=== PATIENT | female | born 1980 | race Caucasian/White ===

== ENCOUNTER 2024-03-30 11:33 | Inpatient (IN) | payer MEDICAID, SELFPAY ==
[2024-03-30 11:34] VITALS: BMI 20.7
--- NOTE | 2024-03-30 13:09 | PD.EDRME ---
Rapid Medical Screening Exam RME Arrival date/time: 03/30/24 11:33 43-year-old female presents to the emergency department with complaints of epigastric abdominal pain history of pancreatitis. I have greeted and performed a focused initial assessment of this patient. Initial appropriate labs ordered at this time. A comprehensive ED assessment and evaluation of the patient and analysis of all test and completion of medical decision making process will be conducted by additional ED provider. Chief Complaint: Abdominal Pain Time Seen by Provider: 03/30/24 11:59
[2024-03-30 13:10] VITALS: BP 126/83; PULSE 72; RESP 18; TEMP 36.8; O2SAT 98
[2024-03-30 13:37] LABS: Collection Type, Urine Clean Catch
[2024-03-30 13:40] LABS: Basophils # (Auto) 0.1 Thou/mm3 (0.0-0.2); Basophils % (Auto) 0 % (0-2.5); Eosinophils # (Auto) 0.1 Thou/mm3 (0.0-0.5); Eosinophils % (Auto) 0 % (0-10); Hemoglobin 13.9 g/dL (12.0-16.0); Immature Granulocytes % (Auto) 0 % (0-0); Immature Granulocytes Auto 0.06 Thou/mm3 (0.00-0.00); Lymphocytes # (Auto) 1.2 Thou/mm3 (1.0-4.8); Lymphocytes % (Auto) 8 % (10-50); Mean Corpuscular HGB Conc 33.9 g/dl (31.0-37.0); Mean Corpuscular Hemoglobin 30.3 pg (25.0-35.0); Mean Corpuscular Volume 90 fL (80-100); Monocytes # (Auto) 0.7 Thou/mm3 (0.0-0.8); Monocytes % (Auto) 5 % (0-12); Neutrophils # (Auto) 12.2 Thou/mm3 (1.8-7.7); Neutrophils % (Auto) 86 % (37-80); Nucleated Red Blood Cell % 0 /100 WBC (0); Platelet Count 280 Thou/mm3 (140-440); RDW Standard Deviation 41.1 fL (36.4-46.3); Red Blood Count 4.58 Miln/mm3 (4.00-5.20); White Blood Count 14.2 Thou/mm3 (3.6-11.0)
[2024-03-30 13:46] LABS: HCG Qualitative,Urine Negative
[2024-03-30 13:47] LABS: Bilirubin,Urine Negative (Negative); Blood,Urine 2+ (Negative); Clarity,Urine Clear (Clear/Hazy); Color,Urine Colorless (Lt Yel-Yel); Glucose, Urine Negative (Negative); Ketones,Urine Negative (Negative); Leukocyte Esterase,Urine Negative (Negative); Nitrite,Urine Negative (Negative); Protein,Urine Negative (Neg - Trace); RBC,Urine 10 /hpf (0-3); Squamous Epithelial Cell,Urine 1 /hpf (0-5); Urobilinogen,Urine Negative mg/dL (0.0-1.0); WBC,Urine 2 /hpf (0-5)
[2024-03-30 14:00] LABS: Alanine Aminotransferase 12 U/L (10-49); Albumin, Serum 5.4 gm/dL (3.5-5.0); Alkaline Phosphatase 65 U/L (46-116); Anion Gap 6 (7-16); Aspartate Amino Transferase 20 U/L (0-34); BUN/Creatinine Ratio 11 Ratio (12-20); Bilirubin,Total 0.3 mg/dL (0.3-1.2); Blood Urea Nitrogen 9 mg/dL (9-23); Calcium 9.9 mg/dL (8.3-10.6); Calcium (Corrected) 9.9 mg/dL (8.5-10.1); Carbon Dioxide 27.7 mMol/L (20.0-31.0); Chloride 103 mMol/L (98-107); Creatinine (Component) 0.8 mg/dL (0.6-1.3); Estimated Creatinine Clearance 76.7 mL/min (>60); Globulin 2.7 gm/dL (2.3-3.5); Glucose 113 mg/dL (74-106); Lipase 444 U/L (12-53); Osmolality,Calculated 273 (275-295); Potassium 4.4 mMol/L (3.4-5.1); Sodium 137 mMol/L (136-145); Total Protein 8.1 gm/dL (5.7-8.2); eGFR > 60 See Note
[2024-03-30] MEDS: MG HYD/AL HYD/SIME (Maalox Reg) SUSP 30 ML UDC PO (14:38)
[2024-03-30] MEDS: LIDOCAINE VISCOUS 2% 15 ML UDC PO (14:38)
--- NOTE | 2024-03-30 17:42 | XR_ITS ---
Examination: CT abdomen with intravenous contrast CT pelvis with intravenous contrast 2-D coronal reconstructions 2-D sagittal reconstructions Date and time of exam:March 30, 20242014 hours INDICATIONS: Abdominal pain several months, post biliary surgery COMPARISON: December 05, 2022. CTDI: vol (mGy) 5.39 DLP: (mGycm) 262 Technique: Multiple axial sections of the abdomen and pelvis have been obtained. 64 slice high-resolution scanner used. 3 mm axial sections have been obtained, post intravenous injection of Isovue 370 2-D sagittal, coronal reconstructions obtained. Low dose protocols were performed. One or more of the following dose reduction techniques were used; automated exposure control, adjustment of the mA and/or KV according to patient size, use of iterative reconstruction technique. Findings: No focal liver or splenic lesions Gallbladder not visualized, no extrahepatic significant biliary tract dilatation Acute pancreatitis, diffuse edema surrounding the pancreas no pseudocyst No hydronephrosis Aorta normal size No bowel obstruction Normal appendix No diverticulitis Retroverted uterus with mildly enlarged fundus Contracted urinary bladder Intact osseous structures IMPRESSION: Acute pancreatitis, no pseudocyst
--- NOTE | 2024-03-30 17:44 | EDNOTE_ITS ---
ED Abdominal Pain RME/HPI General Chief Complaint: Abdominal Pain Stated complaint: Abdominal pain after biliary surgery Time seen by provider: 03/30/24 11:59 Arrival date/time: 03/30/24 11:33 RME / HPI RME / HPI narrative: 43-year-old female patient came in for evaluation regarding upper abdominal pain. Onset of symptoms since yesterday as sudden onset of upper abdominal pain, described as dull ache severity 8 out of 10, associated nausea. And generalized body weakness and patient told me that she is not feeling well. She has been struggling with post gallbladder surgery complication according to her she is having epigastric pain that comes and goes but not like today. Patient was drinking alcohol 3 days ago. Denies any other complaints Related Data Home Medications ?Medication ?Instructions ?Recorded ?Confirmed ibuprofen 200 mg tablet 200 mg PO Q6H PRN 12/20/22 12/20/22 Previous Rx's ?Medication ?Instructions ?Recorded famotidine 20 mg tablet 20 mg PO QDAY #30 tabs 07/16/23 sucralfate 100 mg/mL oral 5 ml PO QID #400 mL 07/16/23 suspension (Carafate) Allergies Allergy/AdvReac Type Severity Reaction Status Date / Time No Known Allergies Allergy Verified 12/20/22 14:58 Review of Systems Review of Systems Narrative Review of Systems: Review of system reviewed and within normal limits except mentioned in HPI ED Exam Narrative Physical exam: VITAL SIGNS: Reviewed. GENERAL APPEARANCE: Alert and interactive, follows commands, no acute distress, HEAD AND FACE: Non-traumatic. ENT: PERRL, pink conjunctivitis, eyelid no trauma, Mucous membrane moist. NECK: Supple, nontender, no nuchal rigidity. CHEST: No tenderness, no crepitus, no paradoxical movement, no retractions. LUNGS: Clear, well ventilated, symmetric, no rales, no wheezing, no ronchi, no stridor, good breath sounds bilaterally. HEART: Regular rate, regular rhythm, no murmur, no gallops. ABDOMEN: Soft, positive bowel sounds, nondistended, no guarding, epigastric, left upper quadrant tenderness, no rebound, no masses, RECTAL: Deferred. GENITAL: Deferred. NEUROLOGICAL: Gross motor function intact sensory function intact, Appropriate for age. MUSCULOSKELETAL: low back nontender, full range of motion. EXTREMITIES: Nontender, full range of motion. SKIN: Color pink, dry, no rash, no lacerations, no abrasions, no contusions. LYMPHATICS: Deferred. Course Quality Measures none Orders Category Date Time Status COVID-19 Screening Questionnaire NOW Care 03/30/24 21:42 Active COVID-19 Screening Questionnaire NOW Care 03/30/24 21:[address] Screening NOW Care 03/30/24 17:42 Active Decision to Admit X1 Care 03/30/24 21:42 Active Decision to Admit X1 Care 03/30/24 21:[address] abdomen pelvis w con Stat Exams 03/30/24 17:42 Completed CBC Stat Lab 03/30/24 13:24 Completed Comprehensive Metabolic Panel Stat Lab 03/30/24 13:24 Completed HCG Qualitative,Urine Stat Lab 03/30/24 13:24 Completed Lipase Stat Lab 03/30/24 13:24 Completed Lipid Panel Stat Lab 03/30/24 13:24 Completed Urinalysis Stat Lab 03/30/24 13:24 Completed Ketorolac Inj [Toradol Inj] Med 03/30/24 20:02 Discontinued 30 mg IVP X1 ONE Lidocaine 2% Viscous [Xylocaine 2% Viscous] Med 03/30/24 13:10 Discontinued 15 ml PO X1 ONE Morphine Inj Med 03/30/24 17:42 Discontinued 4 mg IVP X1 ONE Ondansetron Inj [Zofran Inj] Med 03/30/24 17:42 Discontinued 4 mg IV X1 ONE Sodium Chloride 0.9% 1000 ml [Ns] 1,000 ml Med 03/30/24 17:43 Discontinued IV 999 mls/hr mg Hyd/Al Hyd/Marry Susp [Maalox Susp] Med 03/30/24 13:10 Discontinued 30 ml PO X1 ONE Vital Signs Vital signs: Vital Signs Temperature 98.3 F 03/30/24 13:10 Pulse Rate 72 03/30/24 13:10 Respiratory Rate 18 03/30/24 13:10 Blood Pressure 126/83 03/30/24 13:10 Pulse Oximetry (%) 98 03/30/24 13:10 Oxygen Delivery Method Room Air 03/30/24 13:10 Abdominal Pain MDM MDM Narrative MDM Narrative:: 43-year-old female patient came in for evaluation regarding upper abdominal pain. Onset of symptoms since yesterday as sudden onset of upper abdominal pain, described as dull ache severity 8 out of 10, associated nausea. And generalized body weakness and patient told me that she is not feeling well. She has been struggling with post gallbladder surgery complication according to her she is having epigastric pain that comes and goes but not like today. Patient was drinking alcohol 3 days ago. Denies any other complaints Patient's lipase was noted to be 444, the rest of the labs unremarkable including total lipid. CT scan of the abdomen showed acute pancreatitis no pseudocyst seen. Results discussed with the patient. Patient is to be admitted for acute pancreatitis. Spoke with hospitalist, who admitted the patient. Patient data External records reviewed:: None Clinical information provided by:: patient Social determinants that could affect healthcare access:: none Patient has the following chronic illnesses:: None How is presenting disease/condition affected by chronic disease/condition?: no chronic disease Evaluation data The following diagnostics were reviewed and interpreted by me:: lab results and radiology exam(s) Lab and/or radiology exams considered but not ordered:: None Interpretation Summary: See results in MDM Medications / Prescriptions Medications or Prescriptions considered but not ordered:: None Medication administrations:: Medication Administration History Discontinued Medications Al Hydrox/Mg Hydrox/Simethicone (Mg Hyd/Al Hyd/Marry (Maalox Reg) Susp 30 Ml Udc) 30 ml PO X1 ONE Stop: 03/30/24 13:11 Last Admin: 03/30/24 14:38 Dose: 30 ml Documented By: Sodium Chloride (Ns) 1,000 mls @ 999 mls/hr IV .Q1H1M ONE Stop: 03/30/24 18:43 Last Infusion: 03/30/24 21:17 Dose: Infused Documented By: Admin: 03/30/24 20:07 Dose: 999 mls/hr Documented By: KENDALL Ketorolac Tromethamine (Ketorolac Inj 30 Mg/Ml Vial) 30 mg IVP X1 ONE Stop: 03/30/24 20:03 Last Admin: 03/30/24 20:07 Dose: 30 mg Documented By: KENDALL Lidocaine HCl (Lidocaine Viscous 2% 15 Ml Udc) 15 ml PO X1 ONE Stop: 03/30/24 13:11 Last Admin: 03/30/24 14:38 Dose: 15 ml Documented By: Morphine Sulfate (Morphine Sulf Inj 10 Mg/Ml Vial) 4 mg IVP X1 ONE Stop: 03/30/24 17:43 Last Admin: 03/30/24 20:03 Dose: Not Given Documented By: KENDALL Non-Admin Reason: Patient Refused Ondansetron HCl (Ondansetron Inj 2 Mg/Ml Inj 2 Ml) 4 mg IV X1 ONE; Protocol Stop: 03/30/24 17:43 Last Admin: 03/30/24 20:07 Dose: 4 mg Documented By: KENDALL Maalox, IV fluids for hydration Toradol IV morphine IV Zofran Consultations Consultation(s) initiated? (list below): No Diagnosis Differential diagnosis abdominal pain: abdominal pain, pancreatitis and small bowel obstruction Most likely diagnosis given after review of the tests above:: Acute pancreatitis Admission Indicated Admission indicated?: indicated Explain why admission is indicated or not indicated:: For further management Admission Request Was there a request for admission?: Yes Admission Attestation Admission request attestation: Discussed case with [Dr. Capone] from Hospitalist service regarding admission. Discussed patients ED course, exam findings, labs, and radiology results. The Hospitalist [agrees] to accept the patient for admission. Disposition Plan Disposition Plan: Admit Discharge Plan Plan Patient Disposition: Admit Acute Care w/in Hospital Prescriptions/Referrals Prescriptions/Med Rec: No Action ibuprofen 200 mg tablet 200 mg PO Q6H PRN sucralfate [Carafate] 100 mg/mL suspension 5 ml PO QID Qty: 400 0RF Rx Instructions: swish in mouth and swallow; use after food/drink famotidine 20 mg tablet 20 mg PO QDAY Qty: 30 0RF Referrals: Lazaro Bradford MD [Primary Care Provider] - In 1 week Problem List Clinical Impression: Acute pancreatitis Patient/Caregiver Discharge Instructions Discharge Activity: activity as tolerated Print Language: Amharic Stand Alone Forms: [employer] Award Info., Patient Portal Info Letter
[2024-03-30 18:43] LABS: Cardiac Risk Estimate 3.3 RATIO (3.7-5.6); Cholesterol 180 mg/dL (132-200); HDL Cholesterol 54 mg/dL (40-60); LDL Cholesterol,Calculated 78 mg/dL (0-130); Triglycerides 242 mg/dL (30-150)
[2024-03-30 19:16] VITALS: BP 146/78; PULSE 90; RESP 16; TEMP 36.9; O2SAT 98
[2024-03-30] MEDS: SODIUM CHLORIDE 0.9% 1000 ML 1,000 ML 999 ML IV (20:07)
[2024-03-30] MEDS: KETOROLAC INJ 30 MG/ML VIAL IVP (20:07)
[2024-03-30] MEDS: ONDANSETRON INJ 2 MG/ML INJ 2 ML 4 MG IV (20:07)
[2024-03-30 21:40] VITALS: BP 106/70; PULSE 70; RESP 17; TEMP 36.6; O2SAT 98
[2024-03-30 22:26] VITALS: BP 147/85; PULSE 78; RESP 18; TEMP 36.6; O2SAT 99
--- NOTE | 2024-03-30 23:17 | XR_ITS ---
Examination: PA lateral chest 2 views Technique upright PA lateral chest 2 views Standing): March 30, 2024 at 11:20 PM INDICATIONS: Sepsis pain today. FINDINGS: Normal heart size No pneumonia or pulmonary edema The osseous structures are intact Multiple minute granulomas throughout the lungs noted on the prior study IMPRESSION: No pneumonia or pulmonary edema
--- NOTE | 2024-03-30 23:19 | PD.RESHP ---
Documentation for date of: 03/30/24 HPI History of Present Illness Chief complaint: Abdominal pain for 1 day before admission History of present illness: HPI: A 43-year-old female patient with past medical history of recurrent pancreatitis, vertigo, presented to the ED due to acute abdominal pain that started 1 day before admission. Patient reported that she has been having recurrent episodes of abdominal pain since her cholecystectomy that was done few months ago as a part of treatment for her recurrent pancreatitis. However, yesterday patient started to experience more severe pain than usual. The pain started at the epigastric area and radiated to the back. After that the pain became generalized and improved when the patient leans forward. Patient reported that she has nausea however she has not vomited. Patient reported that since her cholecystectomy the patient persistently nauseous and her bowel habits alternate between constipation and diarrhea. She reported that 1 day before her pain started she drank 2 glasses of wine and ate steak. She reported that she had some episodes of pancreatitis even without drinking alcohol. Patient reported that she has also some episodes of lower GI bleed and she was scheduled for colonoscopy for the next week. Since discharge from the hospital in December 2023 patient has has just saw a director of diagnostic imaging last week. At that time there was concern that the patient might have autoimmune pancreatitis as the patient has her episodes of pancreatitis even without drinking alcohol however the patient does not recall she was worked up for that by her GI specialist. In review of other system patient reported that she has urinary frequency however she denied any dysuria, or change in color of urine and denied any fever or chills. Home medications: Omeprazole 40 mg, Linzess, Flonase ED course: In the ED patient vital signs within normal limits except mild elevation of blood pressure 147/85,Her labs showed WBCs of 14.2, hemoglobin stable at 13.9, hematocrit of 41, platelets within normal limits, CMP within normal limits, lipid profile showed triglyceride of 242, lipase 444, urine analysis was only positive for [address] abdomen and pelvis showed radiological picture of acute pancreatitis. PMH: As above PSX: Cholecystectomy, tubal ligation PFX: No similar condition among family members Social hx: Alcohol: Socially Tobacco: Remote history of smoking stopped 4 months ago, at this time smokes vape that contain nicotine Illicit drugs: Daily marijuana Allergies: No known allergies Review of Systems Review of Systems Systems Reviewed: All systems reviewed, normal except as documented Exam Vital Signs Temp Pulse Resp BP Pulse Ox O2 Del Method 97.8 F 78 18 147/85 H 99 Room Air 03/30/24 22:26 03/30/24 22:26 03/30/24 22:26 03/30/24 22:26 03/30/24 22:26 03/30/24 22:26 Narrative Exam GEN: AOx3, able to speak full sentences HEENT: NC/AC, PERRLA, oral mucosa moist, neck supple CVS: RRR, S1-S2 present, no murmurs appreciated RESP: CTAB GI: soft,non distended, generalized abdominal tenderness (mild), NBS MSK: able to move all 4 limbs, no lower extremity edema SKIN: warm and dry SPRING FORMER HAND: CN II-XII and Sensation grossly intact. Results: Labs 03/30/24 13:24 03/30/24 13:24 Labs: Short CBC 03/30/24 Range/Units 13:24 WBC 14.2 H (3.6-11.0) Thou/mm3 Hgb 13.9 (12.0-16.0) g/dL Hct 41.0 (36.0-46.0) % Plt Count 280 (140-440) Thou/mm3 BMP 03/30/24 13:24 Sodium 137 Potassium 4.4 Chloride 103 Carbon Dioxide 27.7 BUN 9 Creatinine 0.8 Glucose 113 H Calcium 9.9 Liver Function 03/30/24 Range/Units 13:24 Total Bilirubin 0.3 (0.3-1.2) mg/dL AST 20 (0-34) U/L ALT 12 (10-49) U/L Alkaline Phosphatase 65 (46-116) U/L Albumin 5.4 H (3.5-5.0) gm/dL Urine 03/30/24 Range/Units 13:24 Urine Color Colorless A (Lt Yel-Yel) Urine Clarity Clear (Clear/Hazy) Urine pH 7.0 (5.0-7.0) Ur Specific [place] 1.010 (1.001-1.035) Urine Protein Negative (Neg - Trace) Urine Glucose (UA) Negative (Negative) Quality Measures Quality Measures none Medications Home Medications and Allergies Home Medications ?Medication ?Instructions ?Recorded ?Confirmed ?Type chlorpheniramine 2 1 tab PO QDAY 03/30/24 03/30/24 History mg-phenylephrine 5 mg-acetaminophen 325 mg tablet (Flonase Headache-Allergy Relief) linaclotide 72 mcg capsule 72 mcg PO QDAY 03/30/24 03/30/24 History (Linzess) omeprazole 40 mg capsule,delayed 40 mg PO BID 03/30/24 03/30/24 History release Allergies Allergy/AdvReac Type Severity Reaction Status Date / Time No Known Allergies Allergy Verified 12/20/22 14:58 Visit Medications Acetaminophen (Acetaminophen 325 Mg Tablet) 650 mg PO Q6H PRN PRN Reason: PAIN SCALE 1-3 (mild Stop: 04/29/24 23:11 Hydrocodone Bitart/Acetaminophen (Hydrocodone/Apap 10/325 Tab) 1 tab PO Q4H PRN PRN Reason: PAIN SCALE 4-6 (Moderate Stop: 04/04/24 23:11 Heparin Sodium (Porcine) (Heparin Sod Inj 5000 Unit/Ml Vial) 5,000 unit SC Q8HR ANN Stop: 04/14/24 05:59 Sodium Chloride (Ns) 1,000 mls @ 150 mls/hr IV .Q6H40M ANN Stop: 04/29/24 23:14 Morphine Sulfate (Morphine Sulf Inj 10 Mg/Ml Vial) 2 mg IVP Q3H PRN PRN Reason: PAIN SCALE 7-10 (Severe Stop: 04/04/24 23:11 Ondansetron HCl (Ondansetron Inj 2 Mg/Ml Inj 2 Ml) 4 mg IV Q6H PRN; Protocol PRN Reason: NAUSEA OR VOMITING Stop: 04/29/24 23:11 Pantoprazole Sodium (Pantoprazole Inj 40 Mg Vial) 40 mg IVP Q12HR ANN Stop: 04/30/24 08:59 Sennosides (Senna Tablet) 1 tab PO QDAY PRN; Protocol PRN Reason: constipation Stop: 04/29/24 23:11 Discontinued Medications Al Hydrox/Mg Hydrox/Simethicone (Mg Hyd/Al Hyd/Marry (Maalox Reg) Susp 30 Ml Udc) 30 ml PO X1 ONE Stop: 03/30/24 13:11 Last Admin: 03/30/24 14:38 Dose: 30 ml Sodium Chloride (Ns) 1,000 mls @ 999 mls/hr IV .Q1H1M ONE Stop: 03/30/24 18:43 Last Infusion: 03/30/24 21:17 Dose: Infused Ketorolac Tromethamine (Ketorolac Inj 30 Mg/Ml Vial) 30 mg IVP X1 ONE Stop: 03/30/24 20:03 Last Admin: 03/30/24 20:07 Dose: 30 mg Lidocaine HCl (Lidocaine Viscous 2% 15 Ml Udc) 15 ml PO X1 ONE Stop: 03/30/24 13:11 Last Admin: 03/30/24 14:38 Dose: 15 ml Morphine Sulfate (Morphine Sulf Inj 10 Mg/Ml Vial) 4 mg IVP X1 ONE Stop: 03/30/24 17:43 Last Admin: 03/30/24 20:03 Dose: Not Given Ondansetron HCl (Ondansetron Inj 2 Mg/Ml Inj 2 Ml) 4 mg IV X1 ONE; Protocol Stop: 03/30/24 17:43 Last Admin: 03/30/24 20:07 Dose: 4 mg Assessment & Plan Plan Summary:A 43-year-old female patient with past medical history of recurrent pancreatitis, vertigo, presented to the ED due to acute abdominal pain that started 1 day before admission. Patient reported that she has been having recurrent episodes of abdominal pain since her cholecystectomy that was done few months ago as a part of treatment for her recurrent pancreatitis. Patient was admitted for acute pancreatitis Assessment and plan #Recurrent acute pancreatitis possible alcoholic versus type I or type II AIP #History of GERD #History of constipation/diarrhea/lower GI bleed Patient has history of recurrent pancreatitis Patient has history of recurrent acute pancreatitis, underwent cholecystectomy 4 months ago after her last episode of acute pancreatitis here in [facility]. 1 day before the pain started patient drank 2 glasses of wine. WBCs of 14.2, hemoglobin stable at 13.9, hematocrit of 41, platelets within normal limits, CMP within normal limits, calcium within normal limits, lipid profile showed triglyceride of 242, lipase 444, urine analysis was only positive for [address] abdomen and pelvis showed radiological picture of acute pancreatitis. Plan ? Admit patient to MedSurg ? Keep the patient n.p.o. until patient hungry, then can a diet ? Start the patient on pantoprazole 40 mg IV twice daily ? Start the patient on NS 150 mL/h ? Strict in and out ? Pain management as per protocol ? Fecal occult blood test was ordered, follow-up on the results ? Consider consulting GI specialist Dr. Bui ? Monitor for any acute pancreatitis complication #History of vertigo Plan ? No symptoms at this time, will keep monitoring #History of smoking Plan ? Smoking cessation counseling was conducted ? Patient started to have withdrawal symptoms consider nicotine patch. Hospital Maintenance: FEN: N.p.o. DVT ppx: Heparin subcu GI ppx: Protonix twice daily IV lines: PIV [place]: None Code status: Full code Dispo: MedSurg - Patient's plan and care discussed with my attending, Dr. Alina Archibald MD Internal Medicine PGY-2 Attending Provider Attestation/Addendum I have discussed and was present for the essential components of the history, physical examination, diagnosis, and treatment plan with the resident. I agree with the patient's care as documented by the resident and amended herein by me. Amadou Fuller DO. Although this document has been carefully reviewed, there may still be some phonetic and other typographical errors. These errors are purely grammatical due to imperfections in the software program and should not be construed in any way to compromise the substance of the patient's medical care during this visit.
[2024-03-31] VITALS (9 sets, daily range): BP systolic 112–159; BP diastolic 63–89; PULSE 53–86; RESP 16–99; TEMP 36.6; O2SAT 97–99; BMI 20.5
[2024-03-31] MEDS: SODIUM CHLORIDE 0.9% 1000 ML 1,000 ML 150 ML IV ×3 (00:31→19:39)
[2024-03-31] MEDS: HYDROcodone/APAP 10/325 TAB PO ×2 (00:31→05:35)
[2024-03-31 05:48] LABS: Basophils # (Auto) 0.1 Thou/mm3 (0.0-0.2); Basophils % (Auto) 1 % (0-2.5); Eosinophils # (Auto) 0.2 Thou/mm3 (0.0-0.5); Eosinophils % (Auto) 2 % (0-10); Hematocrit 34.1 % (36.0-46.0); Hemoglobin 11.5 g/dL (12.0-16.0); Immature Granulocytes % (Auto) 0 % (0-0); Immature Granulocytes Auto 0.02 Thou/mm3 (0.00-0.00); Lymphocytes # (Auto) 2.1 Thou/mm3 (1.0-4.8); Lymphocytes % (Auto) 27 % (10-50); Mean Corpuscular HGB Conc 33.7 g/dl (31.0-37.0); Mean Corpuscular Hemoglobin 30.6 pg (25.0-35.0); Mean Corpuscular Volume 91 fL (80-100); Monocytes # (Auto) 0.7 Thou/mm3 (0.0-0.8); Monocytes % (Auto) 9 % (0-12); Neutrophils # (Auto) 4.7 Thou/mm3 (1.8-7.7); Neutrophils % (Auto) 61 % (37-80); Nucleated Red Blood Cell % 0 /100 WBC (0); Platelet Count 220 Thou/mm3 (140-440); RDW Standard Deviation 40.9 fL (36.4-46.3); Red Blood Count 3.76 Miln/mm3 (4.00-5.20); White Blood Count 7.7 Thou/mm3 (3.6-11.0)
[2024-03-31 05:53] LABS: Misc Send Out* See Sep Rpt
[2024-03-31 06:08] LABS: Glucose Estimated Average 94 mg/dL (80-131); Hemoglobin A1C 4.9 % Hgb (4.8-6.0)
[2024-03-31 06:13] LABS: Partial Thromboplastin Time 25.2 Seconds (22.0-36.0); Prothrombin Time 11.3 Seconds (9.0-12.2)
[2024-03-31 06:35] LABS: Alanine Aminotransferase 20 U/L (10-49); Albumin, Serum 4.3 gm/dL (3.5-5.0); Albumin/Globulin Ratio 2.2 (1.2-2.2); Alkaline Phosphatase 50 U/L (46-116); Anion Gap 7 (7-16); Aspartate Amino Transferase 32 U/L (0-34); BUN/Creatinine Ratio 12 Ratio (12-20); Bilirubin,Total 0.4 mg/dL (0.3-1.2); Blood Urea Nitrogen 7 mg/dL (9-23); Calcium 8.8 mg/dL (8.3-10.6); Calcium (Corrected) 8.8 mg/dL (8.5-10.1); Carbon Dioxide 25.2 mMol/L (20.0-31.0); Chloride 109 mMol/L (98-107); Creatinine (Component) 0.6 mg/dL (0.6-1.3); Estimated Creatinine Clearance 101.2 mL/min (>60); Glucose 90 mg/dL (74-106); Osmolality,Calculated 279 (275-295); Phosphorous 2.5 mg/dL (2.4-5.1); Sodium 141 mMol/L (136-145); Thyroid Stimulating Hormone 1.14 uIU/mL (0.55-4.78); Total Protein 6.3 gm/dL (5.7-8.2); eGFR > 60 See Note
[2024-03-31] MEDS: ONDANSETRON INJ 2 MG/ML INJ 2 ML 4 MG IV (08:02)
[2024-03-31] MEDS: PANTOPRAZOLE INJ 40 MG VIAL IVP ×2 (08:03→20:24)
--- NOTE | 2024-03-31 08:11 | ESPR_ITS ---
Documentation for date of: 03/31/24 Subjective Subjective Interval history: No acute overnight events. Pain is improved although she still feels nauseous. Complaining of headaches for which we restarted home SUMATRIPTAN. Denies worsening symptoms. Denies fever, chills, headaches, chest pain, sob, cough, other GI or urinary symptoms. Exam Vital Signs Temp Pulse Resp BP Pulse Ox O2 Del Method 97.8 F 78 18 112/71 98 Room Air 03/31/24 04:00 03/31/24 04:06 03/31/24 04:06 03/31/24 04:00 03/31/24 04:00 03/31/24 04:00 Narrative Exam GENERAL * Normal appearing adult female, in mild distress secondary to pain. HEENT * NCAT.?JELANI. Oral mucosa is moist. Patent Nares NECK * Supple, nontender, no thyromegaly, no meningismus, no JVD, no step offs CHEST * RRR, no m/g/r * CTAB, no w/r/r. Symmetrical chest rise. No intercostal subcostal retraction * Atraumatic, nontender, no crepitus, symmetrical expansion. ABDOMEN * Limited exam due to pain. * Soft, flat, on visual inspection. * Bowel sounds presents EXTREMITIES * Nontender, no cyanosis, no edema * No edema/cyanosis.? SKIN * Warm and dry, no jaundice/rashes. NEUROMUSCULAR * No lumbar or midline, no CVA, no paraspinal muscle spasm or tenderness. * Moves all 4 extremities well, with full ROM and good CSM. * WHITEHEAD x4, CN II-XII grossly intact. * No focal neurologic deficits. PSYCHIATRY * Normal mood and affect, cooperative, no SI or HI or hallucinations. Objective Labs 04/02/24 04:48 04/02/24 04:48 Labs: Laboratory Results - last 24 hr 03/30/24 03/31/24 13:24 05:28 WBC 14.2 H 7.7 D RBC 4.58 3.76 L Hgb 13.9 11.5 L D Hct 41.0 34.1 L MCV 90 91 MCH 30.3 30.6 MCHC 33.9 33.7 RDW Std Deviation 41.1 40.9 Plt Count 280 220 D Neut % (Auto) 86 H 61 Lymph % (Auto) 8 L 27 [place] % (Auto) 5 9 Eos % (Auto) 0 2 Baso % (Auto) 0 1 Neut # (Auto) 12.2 H 4.7 Lymph # (Auto) 1.2 2.1 [place] # (Auto) 0.7 0.7 Eos # (Auto) 0.1 0.2 Baso # (Auto) 0.1 0.1 Immature Gran # (Auto) 0.06 H 0.02 H Absolute Nucleated RBC 0.00 0.00 Immature Gran % 0 0 Nucleated RBC % 0 0 PT 11.3 INR 1.0 APTT 25.2 Sodium 137 141 Potassium 4.4 4.0 Chloride 103 109 H Carbon Dioxide 27.7 25.2 Anion Gap 6 L 7 BUN 9 7 L Creatinine 0.8 0.6 Estim Creat Clear Calc 76.7 101.2 eGFR > 60 > 60 BUN/Creatinine Ratio 11 L 12 Glucose [address] Glu mg/dL 94 Hemoglobin A1c 4.9 Calculated Osmolality 273 L 279 Calcium 9.9 8.8 Corrected Calcium 9.9 8.8 Phosphorus 2.5 Magnesium 2.0 Total Bilirubin 0.3 0.4 AST 20 32 ALT 12 20 Alkaline Phosphatase 65 50 D Total Protein 8.1 6.3 Albumin 5.4 H 4.3 D Globulin 2.7 2.0 L Albumin/Globulin Ratio 2.0 2.2 Triglycerides 242 H Cholesterol 180 LDL Cholesterol, Calc 78 HDL Cholesterol 54 Cholesterol/HDL Ratio 3.3 L Lipase 444 H TSH 1.14 Ur Collection Type Clean Catch Urine Color Colorless A Urine Clarity Clear Urine pH 7.0 Ur Specific [place] 1.010 Urine Protein Negative Urine Glucose (UA) Negative Urine Ketones Negative Urine Blood 2+ A Urine Nitrite Negative Urine Bilirubin Negative Urine Urobilinogen (Auto) Negative Ur Leukocyte Esterase Negative Urine RBC 10 H Urine WBC 2 Ur Squamous Epith Cells 1 Urine Bacteria None Urine HCG, Qual Negative Quality Measures Quality Measures none Assessment & Plan Assessment Current Active Medications: Generic Name Dose Route Start Last Admin Trade Name Freq PRN Reason Stop Dose Admin Acetaminophen 650 mg 03/30/24 23:12 Acetaminophen 325 Mg Tablet PO 04/29/24 23:11 Q6H PRN PAIN SCALE 1-3 (mild Hydrocodone Bitart/Acetaminophen 1 tab 03/30/24 23:12 03/31/24 05:35 Hydrocodone/Apap 10/325 Tab PO 04/04/24 23:11 1 tab Q4H PRN Administration PAIN SCALE 4-6 (Moderate Heparin Sodium (Porcine) 5,000 unit 03/31/24 06:00 03/31/24 05:28 Heparin Sod Inj 5000 Unit/Ml Vial SC 04/14/24 05:59 Not Given Q8HR ANN Sodium Chloride 1,000 mls @ 150 mls/hr 03/30/24 23:15 03/31/24 08:02 Ns IV 04/29/24 23:14 150 mls/hr .Q6H40M ANN Administration Morphine Sulfate 2 mg 03/30/24 23:12 Morphine Sulf Inj 10 Mg/Ml Vial IVP 04/04/24 23:11 Q3H PRN PAIN SCALE 7-10 (Severe Ondansetron HCl 4 mg 03/30/24 23:12 03/31/24 08:02 Ondansetron Inj 2 Mg/Ml Inj 2 Ml IV 04/29/24 23:11 4 mg Q6H PRN Administration NAUSEA OR VOMITING Protocol Pantoprazole Sodium 40 mg 03/31/24 09:00 03/31/24 08:03 Pantoprazole Inj 40 Mg Vial IVP 04/30/24 08:59 40 mg Q12HR ANN Administration Sennosides 1 tab 03/30/24 23:12 Senna Tablet PO 04/29/24 23:11 QDAY PRN constipation Protocol Plan In summary: 43-year-old female with PMHx of recurrent pancreatitis, and vertigo who was admitted for acute pancreatitis. Continued on IV fluids. Advancing diet tolerated. Currently pending workup for blood in stool, as reported by patient. Hemoglobin otherwise stable. Appreciate recommendations from GI. Acute pancreatitis Recurrent pancreatitis GERD Chronic constipation Admitted for acute pancreatitis with epigastric pain, elevated lipase, CT findings of acute pancreatitis. History of recurrent pancreatitis with no history of alcohol use. Follows up with rheumatology in [place]. Has an appointment with GI in [place] next month. Symptoms are stable. Will advancing diet as tolerated. ? Continue normal saline at 150 cc an hour ? Continue ONDANSETRON ? Pain control ? Advance diet as tolerated Acute normocytic anemia Concern for GI bleed Patient reports blood in stool over the last couple weeks. She has a history of bleed. She has some dilutional anemia. Otherwise hemoglobin stable. ? Transfuse for Hgb <7 ? Pending FOBT ? Pending recommendations from GI Migraine headaches ? Continued home SUMATRIPTAN PRN History of smoking ? Smoking cessation counseling was conducted ? Consider NICOTINE patches if indicated History of vertigo No indication for intervention at this time. Health maintenance Diet: Clear liquids GI prophylaxis: PROTONIX DVT prophylaxis: SCDs Antibiotics: Not indicated CODE STATUS: Full code Disposition: Pending symptoms improving, GI recommendations Patient case was discussed with attending, Malgorzata Gonzalez MD and senior residents Dr. Viveros and Dr. Deng. Anupam Pace, DO PGYI Senior Resident Attestation: 43-year-old female with significant past medical history of recurrent pancreatitis, and vertigo presented with chief complaint of epigastric pain and was found to have acute pancreatitis. This morning, she reported doing well, but continues to have nausea and bilious vomiting. Later, she reported nausea and vomiting has improved. However, she reported photophobia and headache. Her vitals and labs were fairly stable this morning. Physical exam was significant for mild epigastric tenderness. She was started on clear liquid diet, sumatriptan for possible migraine headache. We will continue with IV maintenance fluid normal saline 150 cc an hour. We will continue to manage her pain. The patient follows-up with rheumatology in [place], and has an appointment with GI in [place] next month. I discussed with and supervised the physician general internal medicine physician involved in the care of this patient. I personally saw and examined the patient and discussed the assessment and plan with the entire medicine team, including my attending. I agree with the assessment and plan as documented above. Bin Deng MD PGY2 Internal Medicine Attending Provider Attestation/Addendum I attest that I was physically present for the evaluation, physical examination, lab and imaging review of the patient with the residents. I discussed the case with the residents and agree with the findings and plans of care as documented above. Kanwal Gonzalez MD
[2024-03-31] MEDS: KETOROLAC INJ 30 MG/ML VIAL 15 MG IVP ×2 (12:33→20:29)
[2024-03-31] MEDS: SUMAtriptan INJ 6 MG/0.5 ML VIAL SC (12:33)
--- NOTE | 2024-03-31 17:30 | PD.IMCONS ---
HPI Data of Consult Requesting Physician: Mustapha Fuller DO Primary Care Provider: Lazaro Bradford MD Consult Narrative Reason for consult: Pain abdomen elevated lipase abnormal CTAP History of present illness: 43 years old female comes in for evaluation to the emergency room for severe abdominal pain with nausea She is postcholecystectomy Lipase 444 Gallbladder ultrasound shows absent gallbladder and a dilated PD of about [address] scan of the abdomen pelvis with contrast showed edematous pancreas and a dilated PD about 3 to 4 mm No choledocholithiasis Patient was subsequently admitted cc:: cc: Mustapha Fuller DO Review of Systems Review of Systems Systems Reviewed: All systems reviewed, normal except as documented Past Medical History Surgical History OTHER SURGICAL HX: Cholecystectomy Meds Home Medications and Allergies Home Medications ?Medication ?Instructions ?Recorded ?Confirmed ?Type chlorpheniramine 2 1 tab PO QDAY 03/30/24 03/30/24 History mg-phenylephrine 5 mg-acetaminophen 325 mg tablet (Flonase Headache-Allergy Relief) linaclotide 72 mcg capsule 72 mcg PO QDAY 03/30/24 03/30/24 History (Linzess) omeprazole 40 mg capsule,delayed 40 mg PO BID 03/30/24 03/30/24 History release Allergies Allergy/AdvReac Type Severity Reaction Status Date / Time No Known Allergies Allergy Verified 12/20/22 14:58 Exam Vital Signs Temp Pulse Resp BP Pulse Ox O2 Del Method 97.8 F 75 16 132/84 H 98 Room Air 03/31/24 16:00 03/31/24 16:00 03/31/24 16:00 03/31/24 16:00 03/31/24 16:00 03/31/24 16:00 Constitutional Comments: Alert oriented Routine Respiratory Exam Comments: Normal to auscultation Routine Abdominal Exam Comments: Soft midepigastric tenderness active bowel sounds Results Labs 03/31/24 05:28 03/31/24 05:28 Labs: Short CBC 03/31/24 Range/Units 05:28 WBC 7.7 D (3.6-11.0) Thou/mm3 Hgb 11.5 L D (12.0-16.0) g/dL Hct 34.1 L (36.0-46.0) % Plt Count 220 D (140-440) Thou/mm3 BMP 03/31/24 05:28 Sodium 141 Potassium 4.0 Chloride 109 H Carbon Dioxide 25.2 BUN 7 L Creatinine 0.6 Glucose 90 Calcium 8.8 Liver Function 03/31/24 Range/Units 05:28 Total Bilirubin 0.4 (0.3-1.2) mg/dL AST 32 (0-34) U/L ALT 20 (10-49) U/L Alkaline Phosphatase 50 D (46-116) U/L Albumin 4.3 D (3.5-5.0) gm/dL Assessment and Plan Additional Assessment & Plan Additional Plan: # Acute pancreatitis could be biliary pancreatitis or hypertriglyceridemia induced pancreatitis could also be alcohol induced as she had 2 glasses of wine Prior to the attack of pain There may also be structural abnormalities as the pancreatic duct is dilated Suggestions N.p.o. Pain control IV fluids IV Protonix MRCP If MRCP is negative patient would most likely need EUS Will follow the patient Thank you very much for the opportunity to participate in the care of this patient
[2024-03-31] MEDS: oxyCODONE/APAP 5/325 TABLET 1 TAB PO (22:10)
[2024-04-01] VITALS (7 sets, daily range): BP systolic 108–152; BP diastolic 66–94; PULSE 57–81; RESP 16–97; TEMP 36.3–36.8; O2SAT 96–99
[2024-04-01] MEDS: SODIUM CHLORIDE 0.9% 1000 ML 1,000 ML 150 ML IV ×3 (06:13→19:12)
[2024-04-01 06:17] LABS: Basophils % (Auto) 1 % (0-2.5); Eosinophils # (Auto) 0.2 Thou/mm3 (0.0-0.5); Eosinophils % (Auto) 3 % (0-10); Hemoglobin 10.9 g/dL (12.0-16.0); Immature Granulocytes % (Auto) 0 % (0-0); Immature Granulocytes Auto 0.02 Thou/mm3 (0.00-0.00); Lymphocytes # (Auto) 1.3 Thou/mm3 (1.0-4.8); Lymphocytes % (Auto) 20 % (10-50); Mean Corpuscular HGB Conc 34.1 g/dl (31.0-37.0); Mean Corpuscular Hemoglobin 30.8 pg (25.0-35.0); Mean Corpuscular Volume 90 fL (80-100); Monocytes # (Auto) 0.6 Thou/mm3 (0.0-0.8); Monocytes % (Auto) 10 % (0-12); Neutrophils # (Auto) 4.2 Thou/mm3 (1.8-7.7); Neutrophils % (Auto) 66 % (37-80); Nucleated Red Blood Cell % 0 /100 WBC (0); Platelet Count 209 Thou/mm3 (140-440); RDW Standard Deviation 40.7 fL (36.4-46.3); Red Blood Count 3.54 Miln/mm3 (4.00-5.20); White Blood Count 6.3 Thou/mm3 (3.6-11.0)
[2024-04-01] MEDS: oxyCODONE/APAP 5/325 TABLET 1 TAB PO ×2 (06:22→22:15)
[2024-04-01 06:54] LABS: Alanine Aminotransferase 109 U/L (10-49); Albumin, Serum 4.1 gm/dL (3.5-5.0); Albumin/Globulin Ratio 2.1 (1.2-2.2); Alkaline Phosphatase 63 U/L (46-116); Anion Gap 7 (7-16); Aspartate Amino Transferase 69 U/L (0-34); BUN/Creatinine Ratio 10 Ratio (12-20); Bilirubin,Total 0.3 mg/dL (0.3-1.2); Blood Urea Nitrogen 5 mg/dL (9-23); Calcium 8.6 mg/dL (8.3-10.6); Calcium (Corrected) 8.6 mg/dL (8.5-10.1); Carbon Dioxide 24.1 mMol/L (20.0-31.0); Chloride 111 mMol/L (98-107); Creatinine (Component) 0.5 mg/dL (0.6-1.3); Estimated Creatinine Clearance 121.4 mL/min (>60); Glucose 92 mg/dL (74-106); Magnesium 1.7 mg/dL (1.6-2.6); Osmolality,Calculated 280 (275-295); Phosphorous 1.9 mg/dL (2.4-5.1); Potassium 3.8 mMol/L (3.4-5.1); Sodium 142 mMol/L (136-145); Total Protein 6.1 gm/dL (5.7-8.2); eGFR > 60 See Note
[2024-04-01] MEDS: PANTOPRAZOLE INJ 40 MG VIAL IVP ×2 (08:32→20:07)
[2024-04-01] MEDS: KETOROLAC INJ 30 MG/ML VIAL 15 MG IVP ×2 (08:32→20:10)
[2024-04-01] MEDS: ONDANSETRON INJ 2 MG/ML INJ 2 ML 4 MG IV ×3 (08:39→20:29)
[2024-04-01] MEDS: SUMAtriptan INJ 6 MG/0.5 ML VIAL SC (10:32)
--- NOTE | 2024-04-01 11:04 | PC.SS ---
Yulisa Durbin is a 43-year-old female admitted to Med-Surg for Pancreatitis. SS conducted bedside contact with the patient to complete initial assessment and to discuss discharge planning. Patient confirmed demographic information. Patient identifies Tony Gray [phone] as her surrogate decision maker. Patient resides at home alone. Pt states she is able to complete all ADL?s independently, no need for any source of DME. Pts PCP is Dr. Maurice ([facility]) and her pharmacy of choice is [facility] on [address]. DC options discussed, pt wishes to return home. Pts family will provide transportation upon DC. No further intervention required at this time, perinatal social worker would be available to address any further concerns. DC Plan: Home Contact: Family friend Tony Gray [phone] PCP: Duncan
--- NOTE | 2024-04-01 15:02 | PC.SS ---
Rounding: Plan for MRCP
--- NOTE | 2024-04-01 15:40 | ESPR_ITS ---
Documentation for date of: 04/01/24 Subjective Subjective Interval history: Patient was examined bedside this morning, she was complaining of mild headache. Pending MRCP. GI Dr. Bui is following Exam Vital Signs Temp Pulse Resp BP Pulse Ox O2 Del Method 97.3 F 58 L 16 147/94 H 96 Room Air 04/01/24 12:00 04/01/24 12:00 04/01/24 12:00 04/01/24 12:00 04/01/24 12:00 04/01/24 12:00 Narrative Exam GENERAL: Adult female resting in hospital bed, mildly anxious secondary to her headache and pain abdomen VITALS: All vitals were reviewed and the pulse ox is 98% on room air HEENT: Normocephalic, atraumatic. Pupils are equal and reactive. Oral mucosa is moist. NECK: Supple, nontender, no JVD CHEST: Symmetrical, atraumatic and with equal expansion ,Nontender on palpation CARDIOVASCULAR: Heart regular rhythm & rate. S1/S2. no murmur or gallop rub or extra beats. LUNGS: Clear to auscultation bilaterally with symmetrical chest rise. No laboring tachypnea or wheezing. No intercostal subcostal retraction. No rales and no rhonchi. ABDOMEN: Soft, flat, mild tender to palpation, no guarding or rebound tenderness. Active and normal bowel sounds. EXTREMITIES:Moves all 4 extremities,No B/L LE edema. SKIN: Warm and dry, no jaundice or rashes noted. NEURO: Patient is AO x 3, Cranial nerves II through XII grossly intact. There is no focal neurologic deficits noted. PSYCHIATRIC: Patient is in normal mood, cooperative, no SI or HI or hallucinations. Objective Labs 04/02/24 04:48 04/02/24 04:48 Labs: Laboratory Results - last 24 hr 04/01/24 05:49 WBC 6.3 RBC 3.54 L Hgb 10.9 L Hct 32.0 L MCV 90 MCH 30.8 MCHC 34.1 RDW Std Deviation 40.7 Plt Count 209 Neut % (Auto) 66 Lymph % (Auto) 20 [place] % (Auto) 10 Eos % (Auto) 3 Baso % (Auto) 1 Neut # (Auto) 4.2 Lymph # (Auto) 1.3 [place] # (Auto) 0.6 Eos # (Auto) 0.2 Baso # (Auto) 0.0 Immature Gran # (Auto) 0.02 H Absolute Nucleated RBC 0.00 Immature Gran % 0 Nucleated RBC % 0 Sodium 142 Potassium 3.8 Chloride 111 H Carbon Dioxide 24.1 Anion Gap 7 BUN 5 L Creatinine 0.5 L Estim Creat Clear Calc 121.4 eGFR > 60 BUN/Creatinine Ratio 10 L Glucose 92 Calculated Osmolality 280 Calcium 8.6 Corrected Calcium 8.6 Phosphorus 1.9 L Magnesium 1.7 Total Bilirubin 0.3 AST 69 H ALT 109 H Alkaline Phosphatase 63 D Total Protein 6.1 Albumin 4.1 Globulin 2.0 L Albumin/Globulin Ratio 2.1 Quality Measures Quality Measures none Assessment & Plan Assessment Current Active Medications: Generic Name Dose Route Start Last Admin Trade Name Freq PRN Reason Stop Dose Admin Acetaminophen 650 mg 03/30/24 23:12 Acetaminophen 325 Mg Tablet PO 04/29/24 23:11 Q6H PRN PAIN SCALE 1-3 (mild Hydrocodone Bitart/Acetaminophen 1 tab 03/30/24 23:12 03/31/24 05:35 Hydrocodone/Apap 10/325 Tab PO 04/04/24 23:11 1 tab Q4H PRN Administration PAIN SCALE 4-6 (Moderate Heparin Sodium (Porcine) 5,000 unit 03/31/24 06:00 03/31/24 14:25 Heparin Sod Inj 5000 Unit/Ml Vial SC 04/14/24 05:59 Not Given Q8HR ANN Sodium Chloride 1,000 mls @ 150 mls/hr 03/30/24 23:15 04/01/24 08:31 Ns IV 04/29/24 23:14 150 mls/hr .Q6H40M ANN Administration Ketorolac Tromethamine 15 mg 03/31/24 12:15 04/01/24 08:32 Ketorolac Inj 30 Mg/Ml Vial IVP 04/04/24 09:01 15 mg BID ANN Administration Morphine Sulfate 2 mg 03/30/24 23:12 Morphine Sulf Inj 10 Mg/Ml Vial IVP 04/04/24 23:11 Q3H PRN PAIN SCALE 7-10 (Severe Ondansetron HCl 4 mg 03/30/24 23:12 04/01/24 14:55 Ondansetron Inj 2 Mg/Ml Inj 2 Ml IV 04/29/24 23:11 4 mg Q6H PRN Administration NAUSEA OR VOMITING Protocol Pantoprazole Sodium 40 mg 03/31/24 09:00 04/01/24 08:32 Pantoprazole Inj 40 Mg Vial IVP 04/30/24 08:59 40 mg Q12HR ANN Administration Sennosides 1 tab 03/30/24 23:12 Senna Tablet PO 04/29/24 23:11 QDAY PRN constipation Protocol Sumatriptan Succinate 6 mg 03/31/24 17:00 04/01/24 10:32 Sumatriptan Inj 6 Mg/0.5 Ml Vial SC 04/30/24 16:59 6 mg Q4H PRN Administration HEADACHE Plan 43-year-old female with PMHx of recurrent pancreatitis, and vertigo who was admitted for acute pancreatitis. Continued on IV fluids. Advancing diet tolerated. Hemoglobin otherwise stable.Pending MRCP Appreciate recommendations from GI. Acute pancreatitis Recurrent pancreatitis GERD Chronic constipation Admitted for acute pancreatitis with epigastric pain, elevated lipase, CT findings of acute pancreatitis. History of recurrent pancreatitis with no history of alcohol use. Follows up with rheumatology in [place]. Has an appointment with GI in [place] next month. Symptoms are stable. Will advancing diet as tolerated. ? Continue normal saline at 150 cc an hour ? Continue ONDANSETRON ? Pain control ? Advance diet as tolerated -Pending MRCP to r/o stricture Acute normocytic anemia Concern for GI bleed Patient reports blood in stool over the last couple weeks. She has a history of bleed. She has some dilutional anemia. Otherwise hemoglobin stable. ? Transfuse for Hgb <7 ? Pending FOBT ? Pending recommendations from GI Migraine headaches ? Continued home SUMATRIPTAN PRN History of smoking ? Smoking cessation counseling was conducted ? Consider NICOTINE patches if indicated History of vertigo No indication for intervention at this time. Health maintenance Diet: Clear liquids after MRCP GI prophylaxis: PROTONIX DVT prophylaxis: SCDs Antibiotics: Not indicated CODE STATUS: Full code Disposition: Pending symptoms improving, GI recommendations Patient case was discussed with attending,Martinez Cordon MD,PGY-3 Attending Provider Attestation/Addendum I reviewed labs, imaging, EKG, home medications and prior available records. Face to face evaluation was performed by me. I have personally examined the patient and discussed assessment and plan with the IM team. I reviewed the resident note and agree with the plan with exceptions as below. Epigastric pain Right upper quadrant abdominal pain History of recurrent pancreatitis Acute pancreatitis History of cholecystectomy Consulted GI: Recommended MRCP to rule out strictures IV fluids Management of nausea/vomiting/pain as needed Sent autoimmune workup to rule out autoimmune pancreatitis Advance diet as tolerated
[2024-04-01] MEDS: HYDROmorphone INJ 2 MG/ML VIAL 0.25 MG IVP (16:25)
--- NOTE | 2024-04-01 18:14 | ESPR_ITS ---
Documentation for date of: 04/01/24 Subjective Subjective Interval history: Patient clinically improving MRCP set for tomorrow in the setting of biliary pancreatitis and a postcholecystectomy state Exam Vital Signs Temp Pulse Resp BP Pulse Ox O2 Del Method 97.3 F 76 16 147/81 H 96 Room Air 04/01/24 16:00 04/01/24 16:00 04/01/24 16:00 04/01/24 16:00 04/01/24 16:00 04/01/24 16:00 Objective Labs 04/01/24 05:49 04/01/24 05:49 Labs: Laboratory Results - last 24 hr 04/01/24 05:49 WBC 6.3 RBC 3.54 L Hgb 10.9 L Hct 32.0 L MCV 90 MCH 30.8 MCHC 34.1 RDW Std Deviation 40.7 Plt Count 209 Neut % (Auto) 66 Lymph % (Auto) 20 [place] % (Auto) 10 Eos % (Auto) 3 Baso % (Auto) 1 Neut # (Auto) 4.2 Lymph # (Auto) 1.3 [place] # (Auto) 0.6 Eos # (Auto) 0.2 Baso # (Auto) 0.0 Immature Gran # (Auto) 0.02 H Absolute Nucleated RBC 0.00 Immature Gran % 0 Nucleated RBC % 0 Sodium 142 Potassium 3.8 Chloride 111 H Carbon Dioxide 24.1 Anion Gap 7 BUN 5 L Creatinine 0.5 L Estim Creat Clear Calc 121.4 eGFR > 60 BUN/Creatinine Ratio 10 L Glucose 92 Calculated Osmolality 280 Calcium 8.6 Corrected Calcium 8.6 Phosphorus 1.9 L Magnesium 1.7 Total Bilirubin 0.3 AST 69 H ALT 109 H Alkaline Phosphatase 63 D Total Protein 6.1 Albumin 4.1 Globulin 2.0 L Albumin/Globulin Ratio 2.1 Impressions Impression: # Idiopathic pancreatitis could be hypertriglyceridemia induced alcohol induced or biliary pancreatitis MRCP a.m. Assessment & Plan A&P Narrative # Acute pancreatitis could be biliary pancreatitis or hypertriglyceridemia induced pancreatitis could also be alcohol induced as she had 2 glasses of wine Prior to the attack of pain There may also be structural abnormalities as the pancreatic duct is dilated Suggestions N.p.o. Pain control IV fluids IV Protonix MRCP If MRCP is negative patient would most likely need EUS Will follow the patient Thank you very much for the opportunity to participate in the care of this patient Time Spent With Patient Time: Total time spent is greater than 50% in coordination of care (as documented) at patient's floor/unit and/or counseling patient:
[2024-04-01] MEDS: DULoxetine HCL 20 MG CAPSULE PO (20:32)
[2024-04-02] VITALS (8 sets, daily range): BP systolic 130–147; BP diastolic 74–88; PULSE 65–93; RESP 17–97; TEMP 36.2–36.6; O2SAT 96–100
--- NOTE | 2024-04-02 | XR_ITS ---
MRI abdomen, without contrast. MRCP Date and time of exam: April 02, 2024 1842 hours INDICATIONS: Epigastric pain this week, postcholecystectomy Technique: Multiple axial and coronal images of the abdomen have been obtained with the Siemens 1.5T MRI scanner. Images obtained included T1 weighted transverse images, T2-weighted transverse images, T2-weighted transverse images fat-suppressed, T2 weighted haste fat suppressed transverse images, T1 weighted images, in and out of phase images, T2-weighted coronal images, breath hold, T2 weighted haze coronal images as well as T2 weighted coronal thick slab images, MRCP. Findings: Liver is not enlarged Absent gallbladder Common hepatic duct 7 mm common bile duct 7 mm, no common bile duct or common hepatic duct stones Pancreatic duct is not dilated No peripancreatic edema Spleen is not enlarged Aorta normal size No hydronephrosis No ascites IMPRESSION: Normal common hepatic or common bile duct stones Pancreatic duct is not dilated Negative for pancreatitis
[2024-04-02] MEDS: SODIUM CHLORIDE 0.9% 1000 ML 1,000 ML 150 ML IV ×3 (01:43→15:38)
[2024-04-02 06:40] LABS: Basophils # (Auto) 0.1 Thou/mm3 (0.0-0.2); Basophils % (Auto) 1 % (0-2.5); Eosinophils # (Auto) 0.2 Thou/mm3 (0.0-0.5); Eosinophils % (Auto) 3 % (0-10); Hemoglobin 11.4 g/dL (12.0-16.0); Immature Granulocytes % (Auto) 0 % (0-0); Immature Granulocytes Auto 0.01 Thou/mm3 (0.00-0.00); Lymphocytes # (Auto) 2.2 Thou/mm3 (1.0-4.8); Lymphocytes % (Auto) 32 % (10-50); Mean Corpuscular HGB Conc 34.5 g/dl (31.0-37.0); Mean Corpuscular Hemoglobin 30.9 pg (25.0-35.0); Mean Corpuscular Volume 89 fL (80-100); Monocytes # (Auto) 0.7 Thou/mm3 (0.0-0.8); Monocytes % (Auto) 10 % (0-12); Neutrophils # (Auto) 3.8 Thou/mm3 (1.8-7.7); Neutrophils % (Auto) 55 % (37-80); Nucleated Red Blood Cell % 0 /100 WBC (0); Platelet Count 230 Thou/mm3 (140-440); Red Blood Count 3.69 Miln/mm3 (4.00-5.20); White Blood Count 6.9 Thou/mm3 (3.6-11.0)
[2024-04-02 07:16] LABS: Alanine Aminotransferase 85 U/L (10-49); Albumin, Serum 4.2 gm/dL (3.5-5.0); Albumin/Globulin Ratio 1.9 (1.2-2.2); Alkaline Phosphatase 62 U/L (46-116); Anion Gap 7 (7-16); Aspartate Amino Transferase 37 U/L (0-34); BUN/Creatinine Ratio 8 Ratio (12-20); Bilirubin,Total 0.3 mg/dL (0.3-1.2); Blood Urea Nitrogen 5 mg/dL (9-23); Calcium 8.7 mg/dL (8.3-10.6); Calcium (Corrected) 8.7 mg/dL (8.5-10.1); Carbon Dioxide 25.6 mMol/L (20.0-31.0); Chloride 107 mMol/L (98-107); Creatinine (Component) 0.6 mg/dL (0.6-1.3); Estimated Creatinine Clearance 101.2 mL/min (>60); Globulin 2.2 gm/dL (2.3-3.5); Glucose 79 mg/dL (74-106); Magnesium 1.6 mg/dL (1.6-2.6); Osmolality,Calculated 275 (275-295); Phosphorous 2.5 mg/dL (2.4-5.1); Potassium 3.7 mMol/L (3.4-5.1); Sodium 140 mMol/L (136-145); Total Protein 6.4 gm/dL (5.7-8.2); eGFR > 60 See Note
--- NOTE | 2024-04-02 08:25 | ESPR_ITS ---
Documentation for date of: 04/02/24 Subjective Subjective Interval history: No acute overnight events. Pain is relatively managed. Still feels nauseous, currently n.p.o. for MRCP. States that headache, refused SUMATRIPTAN secondary to side effects, describes sensation after SUMATRIPTAN. Denies fever, chills, headaches, chest pain, sob, cough, other GI or urinary symptoms. Exam Vital Signs Temp Pulse Resp BP Pulse Ox O2 Del Method 97.6 F 82 17 139/77 H 98 Room Air 04/02/24 04:00 04/02/24 08:22 04/02/24 08:22 04/02/24 04:00 04/02/24 04:00 04/02/24 04:00 Narrative Exam GENERAL * Normal appearing adult female, in mild distress secondary to pain. HEENT * NCAT.?JELANI. Oral mucosa is moist. Patent Nares NECK * Supple, nontender, no thyromegaly, no meningismus, no JVD, no step offs CHEST * RRR, no m/g/r * CTAB, no w/r/r. Symmetrical chest rise. No intercostal subcostal retraction * Atraumatic, nontender, no crepitus, symmetrical expansion. ABDOMEN * Limited exam due to pain. * Soft, flat, on visual inspection. * Bowel sounds presents EXTREMITIES * Nontender, no cyanosis, no edema * No edema/cyanosis. SKIN * Warm and dry, no jaundice/rashes. NEUROMUSCULAR * No lumbar or midline, no CVA, no paraspinal muscle spasm or tenderness. * Moves all 4 extremities well, with full ROM and good CSM. * WHITEHEAD x4, CN II-XII grossly intact. * No focal neurologic deficits PSYCHIATRY * Normal mood and affect, cooperative, no SI or HI or hallucinations. Objective Labs 04/02/24 04:48 04/02/24 04:48 Labs: Laboratory Results - last 24 hr 04/02/24 04:48 WBC 6.9 RBC 3.69 L Hgb 11.4 L Hct 33.0 L MCV 89 MCH 30.9 MCHC 34.5 RDW Std Deviation 40.0 Plt Count 230 Neut % (Auto) 55 Lymph % (Auto) 32 [place] % (Auto) 10 Eos % (Auto) 3 Baso % (Auto) 1 Neut # (Auto) 3.8 Lymph # (Auto) 2.2 [place] # (Auto) 0.7 Eos # (Auto) 0.2 Baso # (Auto) 0.1 Immature Gran # (Auto) 0.01 H Absolute Nucleated RBC 0.00 Immature Gran % 0 Nucleated RBC % 0 Sodium 140 Potassium 3.7 Chloride 107 Carbon Dioxide 25.6 Anion Gap 7 BUN 5 L Creatinine 0.6 Estim Creat Clear Calc 101.2 eGFR > 60 BUN/Creatinine Ratio 8 L Glucose 79 Calculated Osmolality 275 Calcium 8.7 Corrected Calcium 8.7 Phosphorus 2.5 Magnesium 1.6 Total Bilirubin 0.3 AST 37 H ALT 85 H Alkaline Phosphatase 62 Total Protein 6.4 Albumin 4.2 Globulin 2.2 L Albumin/Globulin Ratio 1.9 Quality Measures Quality Measures none Assessment & Plan Assessment Current Active Medications: Generic Name Dose Route Start Last Admin Trade Name Freq PRN Reason Stop Dose Admin Acetaminophen 650 mg 03/30/24 23:12 Acetaminophen 325 Mg Tablet PO 04/29/24 23:11 Q6H PRN PAIN SCALE 1-3 (mild Hydrocodone Bitart/Acetaminophen 1 tab 03/30/24 23:12 03/31/24 05:35 Hydrocodone/Apap 10/325 Tab PO 04/04/24 23:11 1 tab Q4H PRN Administration PAIN SCALE 4-6 (Moderate Heparin Sodium (Porcine) 5,000 unit 03/31/24 06:00 03/31/24 14:25 Heparin Sod Inj 5000 Unit/Ml Vial SC 04/14/24 05:59 Not Given Q8HR ANN Sodium Chloride 1,000 mls @ 150 mls/hr 03/30/24 23:15 04/02/24 01:43 Ns IV 04/29/24 23:14 150 mls/hr .Q6H40M ANN Administration Ketorolac Tromethamine 15 mg 03/31/24 12:15 04/01/24 20:10 Ketorolac Inj 30 Mg/Ml Vial IVP 04/04/24 09:01 15 mg BID ANN Administration Morphine Sulfate 2 mg 03/30/24 23:12 Morphine Sulf Inj 10 Mg/Ml Vial IVP 04/04/24 23:11 Q3H PRN PAIN SCALE 7-10 (Severe Ondansetron HCl 4 mg 03/30/24 23:12 04/01/24 20:29 Ondansetron Inj 2 Mg/Ml Inj 2 Ml IV 04/29/24 23:11 4 mg Q6H PRN Administration NAUSEA OR VOMITING Protocol Pantoprazole Sodium 40 mg 03/31/24 09:00 04/01/24 20:07 Pantoprazole Inj 40 Mg Vial IVP 04/30/24 08:59 40 mg Q12HR ANN Administration Sennosides 1 tab 03/30/24 23:12 Senna Tablet PO 04/29/24 23:11 QDAY PRN constipation Protocol Sumatriptan Succinate 6 mg 03/31/24 17:00 04/01/24 10:32 Sumatriptan Inj 6 Mg/0.5 Ml Vial SC 04/30/24 16:59 6 mg Q4H PRN Administration HEADACHE Plan 43-year-old female with PMHx of recurrent pancreatitis, and vertigo who was admitted for acute pancreatitis. Continued on IV fluids. Advancing diet tolerated. Hemoglobin otherwise stable. MRCP scheduled for the end of the day today. 04/02. Appreciate recommendations from GI. Acute pancreatitis Recurrent pancreatitis GERD Chronic constipation Admitted for acute pancreatitis with epigastric pain, elevated lipase, CT findings of acute pancreatitis. History of recurrent pancreatitis with no history of alcohol use. Follows up with rheumatology in [place]. Has an appointment with GI in [place] next month. Symptoms are stable. Will advancing diet as tolerated. ? Continue normal saline at 150 cc an hour ? Continue ONDANSETRON ? Pain control ? Advance diet as tolerated ? Pending MRCP to r/o stricture Acute normocytic anemia Concern for GI bleed Patient reports blood in stool over the last couple weeks. She has a history of bleed. She has some dilutional anemia. Otherwise hemoglobin stable. ? Transfuse for Hgb <7 ? Pending FOBT ? Pending recommendations from GI Migraine headaches ? Holding home SUMATRIPTAN PRN due to side effect. History of smoking ? Smoking cessation counseling was conducted ? Consider NICOTINE patches if indicated History of vertigo No indication for intervention at this time. Health maintenance Diet: Clear liquids after MRCP GI prophylaxis: PROTONIX DVT prophylaxis: SCDs Antibiotics: Not indicated CODE STATUS: Full code Disposition: Pending symptoms improving, GI recommendations Patient case was discussed with attending, Lamont Zambrano MD and senior resident Dr. Viveros. Anupam Pace DO PGYI Attending Provider Attestation/Addendum I reviewed labs, imaging, EKG, home medications and prior available records. Face to face evaluation was performed by me. I have personally examined the patient and discussed assessment and plan with the IM team. I reviewed the resident note and agree with the plan with exceptions as below. Epigastric pain Right upper quadrant abdominal pain History of recurrent pancreatitis Acute pancreatitis History of cholecystectomy Consulted GI: Pending MRCP to rule out strictures IV fluids Management of nausea/vomiting/pain as needed. Started Toradol IV Sent autoimmune workup to rule out autoimmune pancreatitis Advance diet as tolerated
[2024-04-02] MEDS: KETOROLAC INJ 30 MG/ML VIAL 15 MG IVP ×3 (08:36→21:31)
[2024-04-02] MEDS: ONDANSETRON INJ 2 MG/ML INJ 2 ML 4 MG IV (08:37)
[2024-04-02] MEDS: PANTOPRAZOLE INJ 40 MG VIAL IVP ×2 (08:37→21:31)
[2024-04-02] MEDS: traMADol HCL 50 MG TABLET PO (13:09)
--- NOTE | 2024-04-02 20:59 | PD.IMPROG ---
Documentation for date of: 04/02/24 Subjective Subjective Interval history: MRCP shows no stones in the common bile duct and a normal pancreatic duct Patient's pancreatitis is caused by hypertriglyceridemia as well as alcohol consumption Patient given diet especially low-fat diet or 0 fat diet and absolutely complete abstain from alcohol Exam Vital Signs Temp Pulse Resp BP Pulse Ox O2 Del Method 97.5 F 71 18 145/80 H 100 Room Air 04/02/24 16:00 04/02/24 16:00 04/02/24 16:00 04/02/24 16:00 04/02/24 16:00 04/02/24 16:00 Constitutional Comments: Alert oriented Routine Respiratory Exam Comments: Normal to auscultation Objective Labs 04/02/24 04:48 04/02/24 04:48 Labs: Laboratory Results - last 24 hr 04/02/24 04:48 WBC 6.9 RBC 3.69 L Hgb 11.4 L Hct 33.0 L MCV 89 MCH 30.9 MCHC 34.5 RDW Std Deviation 40.0 Plt Count 230 Neut % (Auto) 55 Lymph % (Auto) 32 [place] % (Auto) 10 Eos % (Auto) 3 Baso % (Auto) 1 Neut # (Auto) 3.8 Lymph # (Auto) 2.2 [place] # (Auto) 0.7 Eos # (Auto) 0.2 Baso # (Auto) 0.1 Immature Gran # (Auto) 0.01 H Absolute Nucleated RBC 0.00 Immature Gran % 0 Nucleated RBC % 0 Sodium 140 Potassium 3.7 Chloride 107 Carbon Dioxide 25.6 Anion Gap 7 BUN 5 L Creatinine 0.6 Estim Creat Clear Calc 101.2 eGFR > 60 BUN/Creatinine Ratio 8 L Glucose 79 Calculated Osmolality 275 Calcium 8.7 Corrected Calcium 8.7 Phosphorus 2.5 Magnesium 1.6 Total Bilirubin 0.3 AST 37 H ALT 85 H Alkaline Phosphatase 62 Total Protein 6.4 Albumin 4.2 Globulin 2.2 L Albumin/Globulin Ratio 1.9 Impressions Impression: # Acute pancreatitis caused by hepatitis or anemia as well as alcohol consumption No evidence of biliary pancreatitis Low-fat diet Dietary consult for that From a GI viewpoint patient can be discharged home No GI follow-up necessary Assessment & Plan A&P Narrative # Acute pancreatitis could be biliary pancreatitis or hypertriglyceridemia induced pancreatitis could also be alcohol induced as she had 2 glasses of wine Prior to the attack of pain There may also be structural abnormalities as the pancreatic duct is dilated Suggestions N.p.o. Pain control IV fluids IV Protonix MRCP If MRCP is negative patient would most likely need EUS Will follow the patient Thank you very much for the opportunity to participate in the care of this patient Time Spent With Patient Time: Total time spent is greater than 50% in coordination of care (as documented) at patient's floor/unit and/or counseling patient:
[2024-04-03] VITALS: BP 137/76; PULSE 50; RESP 16; TEMP 36.4; O2SAT 98
[2024-04-03] MEDS: SODIUM CHLORIDE 0.9% 1000 ML 1,000 ML 150 ML IV ×2 (00:42→09:29)
[2024-04-03] MEDS: ONDANSETRON INJ 2 MG/ML INJ 2 ML 4 MG IV (00:42)
[2024-04-03] MEDS: HYDROcodone/APAP 10/325 TAB PO (00:43)
[2024-04-03 08:00] VITALS: BP 174/91; PULSE 68; RESP 18; TEMP 36.2; O2SAT 99
--- NOTE | 2024-04-03 08:22 | PD.RESPRO ---
Documentation for date of: 04/03/24 Exam Vital Signs Temp Pulse Resp BP Pulse Ox O2 Del Method 97.5 F 50 L 16 137/76 H 98 Room Air 04/03/24 00:00 04/03/24 00:00 04/03/24 00:00 04/03/24 00:00 04/03/24 00:00 04/03/24 00:00 Objective Labs 04/02/24 04:48 04/02/24 04:48 Quality Measures Quality Measures none Assessment & Plan Assessment Current Active Medications: Generic Name Dose Route Start Last Admin Trade Name Freq PRN Reason Stop Dose Admin Acetaminophen 650 mg 03/30/24 23:12 Acetaminophen 325 Mg Tablet PO 04/29/24 23:11 Q6H PRN PAIN SCALE 1-3 (mild Hydrocodone Bitart/Acetaminophen 1 tab 04/02/24 16:06 04/03/24 00:43 Hydrocodone/Apap 10/325 Tab PO 04/04/24 23:11 1 tab Q4H PRN Administration PAIN SCALE 7-10 (Severe Sodium Chloride 1,000 mls @ 150 mls/hr 03/30/24 23:15 04/03/24 00:42 Ns IV 04/29/24 23:14 150 mls/hr .Q6H40M ANN Administration Ketorolac Tromethamine 15 mg 04/02/24 16:07 04/02/24 21:31 Ketorolac Inj 30 Mg/Ml Vial IVP 04/03/24 22:01 15 mg TID PRN Administration PAIN SCALE 4-6 (Moderate Ondansetron HCl 4 mg 03/30/24 23:12 04/03/24 00:42 Ondansetron Inj 2 Mg/Ml Inj 2 Ml IV 04/29/24 23:11 4 mg Q6H PRN Administration NAUSEA OR VOMITING Protocol Pantoprazole Sodium 40 mg 03/31/24 09:00 04/02/24 21:31 Pantoprazole Inj 40 Mg Vial IVP 04/30/24 08:59 40 mg Q12HR ANN Administration Sennosides 1 tab 03/30/24 23:12 Senna Tablet PO 04/29/24 23:11 QDAY PRN constipation Protocol Tramadol HCl 50 mg 04/02/24 12:15 04/02/24 13:09 Tramadol Hcl 50 Mg Tablet PO 02/01/25 12:14 50 mg Q6HR PRN Administration PAIN SCALE 4-6 (Moderate Plan 43-year-old female with PMHx of recurrent pancreatitis, and vertigo who was admitted for acute pancreatitis. Continued on IV fluids. Advancing diet tolerated. Hemoglobin otherwise stable. MRCP scheduled for the end of the day today. 04/02. Appreciate recommendations from GI. Vitals ok CBC ok LFTs improving MRCP nomral Acute pancreatitis Recurrent pancreatitis GERD Chronic constipation Admitted for acute pancreatitis with epigastric pain, elevated lipase, CT findings of acute pancreatitis. History of recurrent pancreatitis with no history of alcohol use. Follows up with rheumatology in [place]. Has an appointment with GI in [place] next month. Symptoms are stable. Will advancing diet as tolerated. ? Continue normal saline at 150 cc an hour ? Continue ONDANSETRON ? Pain control ? Advance diet as tolerated ? Pending MRCP to r/o stricture Acute normocytic anemia Concern for GI bleed Patient reports blood in stool over the last couple weeks. She has a history of bleed. She has some dilutional anemia. Otherwise hemoglobin stable. ? Transfuse for Hgb <7 ? Pending FOBT ? Pending recommendations from GI Migraine headaches ? Holding home SUMATRIPTAN PRN due to side effect. History of smoking ? Smoking cessation counseling was conducted ? Consider NICOTINE patches if indicated History of vertigo No indication for intervention at this time. Health maintenance Diet: Clear liquids after MRCP GI prophylaxis: PROTONIX DVT prophylaxis: SCDs Antibiotics: Not indicated CODE STATUS: Full code Disposition: Pending symptoms improving, GI recommendations Patient case was discussed with attending, Lamont Zambrano MD and senior resident Dr. Viveros. Anupam Pace DO PGYI
--- NOTE | 2024-04-03 08:56 | PC.NURSE ---
[facility] on 04/03/24 from 0100 to 0700.
[2024-04-03] MEDS: PANTOPRAZOLE INJ 40 MG VIAL IVP (09:26)
[2024-04-03] MEDS: SENNA TABLET 1 TAB PO (09:27)
[2024-04-03] MEDS: KETOROLAC INJ 30 MG/ML VIAL 15 MG IVP ×2 (09:27→14:20)
--- NOTE | 2024-04-03 11:36 | ESDS_ITS ---
<Statement entered by Martinez Viveros MD - 04/03/24 11:57> I discussed with and supervised my co-resident involved in the care of this patient. I agree with the assessment and plan as documented above. Martinez Viveros,PGY-3 Disclaimer: Despite multiple revisions, due to the dictation software being used, the document below may not be free of grammatical errors including phonetic/typographic errors. However, this does not deter from our commitment to providing health care in the patient's best interest in mind. Planned Discharge Date 04/03/24 DS: Providers Provider Date of admission: 03/30/24 23:12 Primary care physician: Lazaro Bradford MD Admitting Provider: Mustapha Fuller DO Attending Provider on Admission: Lamont Zambrano MD Consults: 03/31/24 11:13 Consult to Gastroenterology Routine Comment: Gi bleed? acute panc Consulting Provider: Estrellita Bui 04/02/24 21:50 Referral Registered Dietitian Stat Comment: Instructions: please arrange for pt to have a 0 gram fat diet Attending Provider on DC: Anupam Pace MD Discharging Provider: Anupam Pace MD DS: Diagnosis Problem List Completed Was Problem List Reviewed/Reconciled?: Yes Hospital Course Hospital Course Hospital course: This is a 43-year-old female with PMHx of recurrent pancreatitis, and vertigo who was admitted for acute pancreatitis based on pain, elevated lipase's and CT findings. Continued with IV fluids and pain control. Pain has substantially improved on the day of discharge. She was tolerating oral intake without nausea or vomiting. Triglycerides were 242, which may have contributed to her acute pancreatitis. She denies history of alcohol use. She follows up with rheumatology and GI regarding autoimmune workup, and has appointment with GI in [place] next month to rule out GI bleed. There is no sign of GI bleed at the time of discharge. Hemoglobin has been consistently stable throughout the stay. Recommended continuing outpatient workup for autoimmune hepatitis and continuing with FENOFIBRATE therapy. Radiographical findings: * Admission CT abdominal pelvic: Acute pancreatitis, diffuse edema surrounding the pancreas no pseudocyst. * CXR: Multiple minute granulomas throughout the lungs noted on the prior study. No pneumonia or pulmonary edema. * Follolw-up MRCP: Normal common hepatic or common bile duct stones. Pancreatic duct is not dilated. Negative for pancreatitis PATIENT INSTRUCTIONS: Follow-up with PCP within 1-2 weeks of discharge. Follow-up with your GI specialist within 1-2 weeks of discharge. Avoid alcohol and fatty food, both of which can increase your risk for recurrent pancreatitis. Commended low-fat or nonfat diet, continuing with FENOFIBRATE for triglyceridemia. Return to Emergency Room if symptoms persist, worsen, or new symptoms develop. Continue taking the following NEW medications as prescribed below: ? FENOFIBRATE 50 mg daily for triglyceridemia Continue taking all home medications as prescribed by your doctor. Other instructions: Follow-up with PCP and/or rheumatology regarding workup for autoimmune pancreatitis and incidental granulomas on chest x-ray. ADMISSION DIAGNOSES: Acute pancreatitis Recurrent pancreatitis GERD Chronic constipation Acute normocytic anemia Concern for GI bleed Migraine headaches History of smoking History of vertigo Patient case was discussed with attending, Lamont Zambrano MD and senior residents Dr. Viveros and Dr. Deng. Anupam Pace DO PGYI Time Spent with Patient Time attestation: Total time spent providing and/or coordinating discharge services: Greater than 35 minutes. Exam Vital Signs Temp Pulse Resp BP Pulse Ox O2 Del Method 97.1 F 68 18 174/91 H 99 Nasal Cannula 04/03/24 08:00 04/03/24 08:00 04/03/24 08:00 04/03/24 08:00 04/03/24 08:00 04/03/24 08:00 Narrative Exam GENERAL * Normal appearing adult female, in mild distress secondary to pain. HEENT * NCAT.?JELANI. Oral mucosa is moist. Patent Nares NECK * Supple, nontender, no thyromegaly, no meningismus, no JVD, no step offs CHEST * RRR, no m/g/r * CTAB, no w/r/r. Symmetrical chest rise. No intercostal subcostal retraction * Atraumatic, nontender, no crepitus, symmetrical expansion. ABDOMEN * Limited exam due to pain. * Soft, flat, on visual inspection. * Bowel sounds presents EXTREMITIES * Nontender, no cyanosis, no edema * No edema/cyanosis. SKIN * Warm and dry, no jaundice/rashes. NEUROMUSCULAR * No lumbar or midline, no CVA, no paraspinal muscle spasm or tenderness. * Moves all 4 extremities well, with full ROM and good CSM. * WHITEHEAD x4, CN II-XII grossly intact. * No focal neurologic deficits PSYCHIATRY * Normal mood and affect, cooperative, no SI or HI or hallucinations. Discharge Plan Plan Patient Disposition: HOME (Self Care) Care Plan Goals: Follow-up with PCP within 1-2 weeks of discharge. Follow-up with your GI specialist within 1-2 weeks of discharge. Avoid alcohol and fatty food, both of which can increase your risk for recurrent pancreatitis. Commended low-fat or nonfat diet, continuing with FENOFIBRATE for triglyceridemia. Return to Emergency Room if symptoms persist, worsen, or new symptoms develop. Continue taking the following NEW medications as prescribed below: ? FENOFIBRATE 50 mg daily for hypertriglyceridemia - Tylenol 500mg up to 4 times a day for abdominal pain Continue taking all home medications as prescribed by your doctor. Other instructions: Follow-up with PCP and/or rheumatology regarding workup for autoimmune pancreatitis and incidental granulomas on chest x-ray. Prescriptions/Referrals Prescriptions/Med Rec: New fenofibrate 50 mg capsule 50 mg PO QDAY Qty: 30 2RF acetaminophen 500 mg tablet 500 mg PO Q6H PRN (Reason: pain) Qty: 14 0RF Continued Flonase Headache-Allergy Rlf 2-5-325 mg Tablet 1 tab PO QDAY omeprazole 40 mg Capsule,Delayed Release(Dr/Ec) 40 mg PO BID Linzess 72 mcg Capsule 72 mcg PO QDAY Referrals: Lazaro Bradford MD [Primary Care Provider] - Patient/Caregiver Discharge Instructions Discharge Activity: activity as tolerated Education Materials: Pancreatitis Acute Dc, ED Pancreatitis Print Language: Welsh Stand Alone Forms: [facility] Award Info., Patient Portal Info Letter Discharge Order Discharge Orders: Discharge (Routine); Ordered 04/03/24 Ordered By: Bin Deng Quality Discharge Quality Measures VTE prophylaxis Attestestation MD Attestation I reviewed labs, imaging, EKG, home medications and prior available records. Face to face evaluation was performed by me. I have personally examined the patient and discussed assessment and plan with the IM team. I reviewed the resident note and agree with the plan with exceptions as below. Epigastric pain Right upper quadrant abdominal pain History of recurrent pancreatitis Acute pancreatitis History of cholecystectomy Consulted GI: Ordered MRCP that did not show any strictures or stones. Okay to discharge Encourage oral hydration Management of pain as needed Sent autoimmune workup to rule out autoimmune pancreatitis Low-fat diet Time spent is 40 minutes. More than 50% of the time was spent on patient education and coordination of care.
[2024-04-03 12:00] VITALS: BP 109/63; PULSE 54; RESP 17; TEMP 36.6; O2SAT 98
--- NOTE | 2024-04-03 12:20 | PD.IMPROG ---
Documentation for date of: 04/03/24 Subjective Subjective Interval history: Case discussed with internal medicine team Okay to discharge the patient home to be followed by the PCP Complete abstain from alcohol 0 g fat diet that means she will probably consume 10 g of fat Exam Vital Signs Temp Pulse Resp BP Pulse Ox O2 Del Method 97.1 F 68 18 174/91 H 99 Nasal Cannula 04/03/24 08:00 04/03/24 08:00 04/03/24 08:00 04/03/24 08:00 04/03/24 08:00 04/03/24 08:00 Objective Labs 04/02/24 04:48 04/02/24 04:48 Impressions Impression: # Acute pancreatitis possibly caused by alcohol and hypertriglyceridemia Plan As under HPI Assessment & Plan A&P Narrative # Acute pancreatitis could be biliary pancreatitis or hypertriglyceridemia induced pancreatitis could also be alcohol induced as she had 2 glasses of wine Prior to the attack of pain There may also be structural abnormalities as the pancreatic duct is dilated Suggestions N.p.o. Pain control IV fluids IV Protonix MRCP If MRCP is negative patient would most likely need EUS Will follow the patient Thank you very much for the opportunity to participate in the care of this patient Time Spent With Patient Time: Total time spent is greater than 50% in coordination of care (as documented) at patient's floor/unit and/or counseling patient:
== END 2024-04-03 16:10 | disposition home or self-care (01) | DRG 282 ==
LOC: SERX 21:55 → SERHOLD 23:37 → S3SX 03-31 00:17
PROVIDERS: Nurse Practitioner Family; Nurse Practitioner Primary Care; Student in an Organized Health Care Education/Training Program; Admitting Provider Student in an Organized Health Care Education/Training Program; Emergency Provider Emergency Medicine; PCP Family Medicine; Visit Provider Student in an Organized Health Care Education/Training Program
DX: K85.90 Acute pancreatitis without necrosis or infection, unspecified (principal); K86.1 Other chronic pancreatitis; F17.200 Nicotine dependence, unspecified, uncomplicated; Z71.6 Tobacco abuse counseling; Z90.49 Acquired absence of other specified parts of digestive tract; K59.09 Other constipation; K21.9 Gastro-esophageal reflux disease without esophagitis; G43.909 Migraine, unspecified, not intractable, without status migrainosus; E78.1 Pure hyperglyceridemia; D64.9 Anemia, unspecified
CPT/HCPCS: 36415; 71046; 74177; 80053; 80061; 81001; 81025; 82042; 82150; 82945; 83036; 83615; 83690; 83735; 84100; 84157; 84443; 85025; 85610; 85730; 87070; 87075; 87205; 89051; 94762; A4649; J1885; J2405; J2470; J3030; J3490; J7030; Q9967; S8037; 74181; A9270